=== PATIENT | female | born 1960 | race American Indian/Alaskan Native ===

== ENCOUNTER 2017-09-21 07:45 | Emergency (ER) | payer SELFPAY ==
[2017-09-21 07:53] VITALS: BP 177/68
--- NOTE | 2017-09-21 08:10 | Emergency Department Report ---
ED General Adult HPI - General Chief complaint: Extremity Injury, Upper Stated complaint: R HAND NUMB Time Seen by Provider: 09/21/17 07:55 Source: patient Mode of arrival: Ambulatory Limitations: No Limitations - History of Present Illness Initial comments: This is a 56-year-old female presenting with numbness and tingling to right hand and pain to the right great toe. Patient has a history of arthritis and gout. She is currently not taking any medication at this time. Patient reports pain has been for 3-5 month. Patient reports pain is filling likely swelling tingling sensation. The pain is causing her to cry throughout the night. When she woke up this morning she noticed her right great toe was swollen and pain was creeping up right foot. She was unable to wear a normal shoe so she is wearing flip-flops. She normally goes to [facility] in [place] but she did not have enough money to ride the bus over the year for follow-up. She is also concerned about her blood pressures she noticed with her mental health doctor last week blood pressure was 200s over 90s. A blood pressure is elevated on arrival. Denies dizziness, headache, shortness of breath, chest pain, and nausea and vomiting. -: month(s) (3 months) Location: upper extremity (right tips of fingers are numb and tingling sensation ), lower extremity (right great toe pain and swollen) Radiation: non-radiation Severity scale (0 -10): 5 Quality: aching, other (numbness and tingling in right finger tips) Consistency: intermittent Improves with: other (elevation) Worsens with: movement, other (and touch) Associated Symptoms: denies other symptoms Treatments Prior to Arrival: none - Related Data Previous Rx's Medication Instructions Recorded Last Taken Type Colchicine [Colcrys] 0.6 mg PO BID #20 tab 09/25/15 Unknown Rx HYDROcodone/APAP 5-325 [[place] 1 each PO Q4HR PRN #20 tablet 09/25/15 Unknown Rx 5/325] Prednisone [predniSONE 10 mg 10 mg PO .TAPER #1 tab.ds.pk 09/25/15 Unknown Rx (6-Day Pack, 21 Tabs)] Ibuprofen 800 mg PO Q6H PRN #15 tablet 09/21/17 Unknown Rx Thiamine [Vitamin B-1] 100 mg PO QDAY #10 tablet 09/21/17 Unknown Rx Allergies Allergy/AdvReac Type Severity Reaction Status Date / Time No Known Allergies Allergy Unverified 09/25/15 11:35 ED Review of Systems ROS: Stated complaint: R HAND NUMB Other details as noted in HPI Constitutional: denies: chills, fever Respiratory: denies: cough, shortness of breath, wheezing Cardiovascular: denies: chest pain, palpitations Gastrointestinal: denies: abdominal pain, nausea, diarrhea Musculoskeletal: joint swelling (right great toe), arthralgia (right great toe) . denies: back pain Skin: denies: rash, lesions Neurological: numbness (numbness and tingling in tips of right fingers). denies : headache, weakness, paresthesias Psychiatric: denies: anxiety, depression ED Past Medical Hx - Past Medical History Previous Medical History?: Yes Hx Arthritis: Yes Additional medical history: gout - Surgical History Past Surgical History?: Yes Additional Surgical History: Partial Hysterectomy, surgery on left foot,Pins SHI - Social History Smoking Status: Current Every Day Smoker - Medications Home Medications: Home Medications Medication Instructions Recorded Confirmed Last Taken Type Colchicine [Colcrys] 0.6 mg PO BID #20 tab 09/25/15 Unknown Rx HYDROcodone/APAP 5-325 [[place] 1 each PO Q4HR PRN #20 tablet 09/25/15 Unknown Rx 5/325] Prednisone [predniSONE 10 mg 10 mg PO .TAPER #1 tab.ds.pk 09/25/15 Unknown Rx (6-Day Pack, 21 Tabs)] Ibuprofen 800 mg PO Q6H PRN #15 tablet 09/21/17 Unknown Rx Thiamine [Vitamin B-1] 100 mg PO QDAY #10 tablet 09/21/17 Unknown Rx ED Physical Exam - General Limitations: No Limitations General appearance: alert, in no apparent distress - Respiratory Respiratory exam: Present: normal lung sounds bilaterally. Absent: respiratory distress, wheezes, rales, rhonchi, stridor, accessory muscle use - Cardiovascular Cardiovascular Exam: Present: regular rate, normal rhythm, normal heart sounds. Absent: systolic murmur, diastolic murmur, rubs, gallop - GI/Abdominal GI/Abdominal exam: Present: soft, normal bowel sounds. Absent: distended, tenderness, guarding, rebound, rigid, organomegaly, mass - Extremities Exam Extremities exam: Present: normal inspection, full ROM, normal capillary refill. Absent: pedal edema, joint swelling, calf tenderness - Expanded Upper Extremity Exam Right General: Present: normal inspection Shoulder Exam: Present: normal inspection, full ROM Upper Arm exam: Present: normal inspection, full ROM Elbow exam: Present: normal inspection, full ROM Forearm Wrist exam: Present: normal inspection, full ROM Hand Wrist exam: Present: normal inspection, full ROM Neuro motor exam: Present: wrist extension intact, thumb opposition intact, thumb IP flexion intact, thumb adduction intact, fingers 2-5 abduction intact Neurosensory exam: Present: radial nerve intact, median nerve intact Vascular: Present: normal capillary refill - Expanded Lower Extremity Exam Right Hip exam: Present: normal inspection, full ROM Upper Leg exam: Present: normal inspection, full ROM Knee exam: Present: normal inspection, full ROM Lower Leg exam: Present: normal inspection, full ROM Ankle exam: Present: normal inspection, full ROM Foot/Toe exam: Present: full ROM, tenderness, swelling (swelling, tenderness, 1st proximal MTP joint). Absent: abrasion, laceration, erythema Neuro vascular tendon exam: Present: no vascular compromise Gait: Positive: observed and limited by pain - Neurological Exam Neurological exam: Present: alert, oriented X3 - Psychiatric Psychiatric exam: Present: normal affect, normal mood - Skin Skin exam: Present: warm, dry, intact, normal color. Absent: rash ED Course Vital Signs 09/21/17 07:49 Temperature 97.8 F Pulse Rate 63 Respiratory 18 Rate Blood Pressure 177/68 O2 Sat by Pulse 98 Oximetry ED Medical Decision Making - Lab Data Result diagrams: 09/21/17 08:25 - Medical Decision Making This is a 56 y.o. female that presents with swelling over right proximal 1st MTP joint with pain with movement for 2 days. She also c/o numbness and tingling to right tips of fingers. Hx of gout. Patient is stable and examined by me. Obtained CBC and Uric acid. labs normal. No acute signs of distress noted. Given dexamethasone 8 mg IM once in ER. Discussed plan to start ibuprofen 800 mg po tid with patient. Trial run of thiamine for paresthesia and f/u with PCP for further evaluation. Advised to f/u with PCP at [facility] for paresthesia and gout management and further evaluation. Patient agrees to ED plan of care. Discharged home and follow up with PCP in 3 days. Critical care attestation.: If time is entered above; I have spent that time in minutes in the direct care of this critically ill patient, excluding procedure time. ED Disposition Clinical Impression: Neuropathy Osteoarthritis Qualifiers: Osteoarthritis location: foot Osteoarthritis type: primary Laterality: right Qualified Code(s): M19.071 - Primary osteoarthritis, right ankle and foot Disposition: TO HOME OR SELFCARE Is pt being admited?: No Does the pt Need Aspirin: No Condition: Stable Instructions: Osteoarthritis (ED), Paresthesia (ED) Additional Instructions: Take medication as prescribed to manage pain. Follow up with primary care provider in 2-3 days. Prescriptions: Ibuprofen 800 mg PO Q6H PRN #15 tablet PRN Reason: Pain Thiamine [Vitamin B-1] 100 mg PO QDAY #10 tablet Referrals: [facility] [Outside] - 3-5 Days [facility] [Outside] - 3-5 Days [facility] [Outside] - 3-5 Days Time of Disposition: 09:54 Print Language: [id number]
[2017-09-21 08:47] LABS: Hematocrit 44.1 % (30.3-42.9); Hemoglobin 14.1 gm/dl (10.1-14.3); Mean Corpuscular HGB Conc 32 % (30-34); Mean Corpuscular Hemoglobin 28 pg (28-32); Mean Corpuscular Volume 87 fl (79-97); Platelet Count 252 K/mm3 (140-440); Red Blood Count 5.08 M/mm3 (3.65-5.03)
[2017-09-21] MEDS ORDERED: DECADRON IM ONE (09:55)
== END 2017-09-21 10:21 | disposition home or self-care (01) ==
LOC: ED 07:45
DX: M19.071 Primary osteoarthritis, right ankle and foot (principal); G62.9 Polyneuropathy, unspecified; M10.9 Gout, unspecified; F17.200 Nicotine dependence, unspecified, uncomplicated; Z87.39 Personal history of other diseases of the musculoskeletal system and connective tissue; Z90.710 Acquired absence of both cervix and uterus; Z79.899 Other long term (current) drug therapy
CPT/HCPCS: 36415; 84550; 85027; 96372; 99283; J1100